=== PATIENT | male | born 1945 | race Caucasian/White ===

== ENCOUNTER 2020-11-23 10:02 | Inpatient (IN) | payer OTHER, MEDICARE ==
[~2020-11-23] VITALS: Ht 182.9 cm; Wt 80.6 kg
[~2020-11-23 10:02] MED LIST: ACET325 PO; ALBU90OI6 INH; Aspirin325 MG PO; GUAI600T33 PO; IBUP600 PO; LEVFLO500 PO; PRED20 PO; SYMBICORT 80-10.2 GM INH
[2020-11-23 10:29] LABS: BASOPHILS ABSOLUTE AUTO 0.04 K/mm3 (0.00-0.23); BASOPHILS PERCENT AUTO 0 % (0-2); EOSINOPHILS ABSOLUTE AUTO 0.06 K/mm3 (0.00-0.68); EOSINOPHILS PERCENT AUTO 1 % (0-6); Hematocrit 46.5 % (37.0-53.0); Hemoglobin 13.5 g/dL (13.5-17.5); IMMATURE GRAN ABSOLUTE AUTO 0.16 K/mm3 (0.00-0.10); IMMATURE GRAN PERCENT AUTO 1 % (0-1); LYMPHOCYTES ABSOLUTE AUTO 0.59 K/mm3 (0.84-5.20); LYMPHOCYTES PERCENT AUTO 5 % (21-46); MONOCYTES ABSOLUTE AUTO 1.02 K/mm3 (0.16-1.47); MONOCYTES PERCENT AUTO 8 % (4-13); Mean Corpuscular HGB 28.7 pg (26.0-34.0); Mean Corpuscular Volume 99 fL (80-100); Mean Platelet Volume 10.8 fL (9.1-12.4); NEUTROPHILS ABSOLUTE AUTO 11.08 K/mm3 (1.96-9.15); NEUTROPHILS PERCENT AUTO 86 % (41-73); Platelet Count 205 K/mm3 (150-400); RDW Coefficient Variation 12.5 % (11.7-14.2); RDW Standard Deviation 45.8 fL (35.1-46.3); White Blood Cell Count 12.95 K/mm3 (4.00-11.30)
[2020-11-23 10:41] LABS: Alanine Aminotransfer (ALT/SGP 20 U/L (12-78); Albumin, Blood 3.4 g/dL (3.4-5.0); Albumin/Globulin Ratio 0.8 (0.8-1.8); Alk Phos 105 U/L (50-136); Anion Gap 1 mmol/L (6-16); Aspartate Aminotrans (AST/SGOT 26 U/L (12-37); Bilirubin, Total 0.6 mg/dL (0.1-1.0); Blood Urea Nitrogen 14 mg/dL (8-24); CO2, Blood 42 mmol/L (21-32); Calcium, Blood 9.1 mg/dL (8.5-10.1); Chloride, Blood 96 mmol/L (98-108); Creatinine, Blood 0.74 mg/dL (0.60-1.20); Globulin, Blood 4.5 g/dL (2.2-4.0); Glomerular Filtration Rate >60 (60-); Glucose, Blood 128 mg/dL (70-99); Potassium, Blood 4.8 mmol/L (3.5-5.5); Sodium, Blood 139 mmol/L (136-145); Total Protein, Blood 7.9 g/dL (6.4-8.2); Troponin I <0.015 ng/mL (0.000-0.040)
[2020-11-23 10:46] LABS: PCO2 Arterial > 105 mmHg (35-45)
[2020-11-23] MEDS ORDERED: THERA-D2000 UNIT PO (11:12)
[2020-11-23] MEDS ORDERED: BENZ100A PO (11:12)
[2020-11-23 11:13] LABS: Influenza A, PCR NEGATIVE (NEGATIVE); Influenza B, PCR NEGATIVE (NEGATIVE); Resp Syncytial Virus, PCR NEGATIVE (NEGATIVE); SARS-Cov-2 (COVID-19) PCR, MMC NEGATIVE (NEGATIVE)
[2020-11-23] MEDS ORDERED: FAMO40 PO (11:13)
[2020-11-23] MEDS ORDERED: ARTIFICIAL TEAR15 M2 BOTHEYES (11:13)
[2020-11-23] MEDS ORDERED: FEROSUL325 M1 PO (11:14)
[2020-11-23] MEDS ORDERED: PANT40 PO (11:15)
[2020-11-23] MEDS ORDERED: FINA5 PO (11:15)
[2020-11-23] MEDS ORDERED: TIOT18 INH (11:16)
[2020-11-23] MEDS ORDERED: ROPI.25 PO (11:16)
[2020-11-23] MEDS ORDERED: TAMS.4ER PO (11:16)
[2020-11-23 13:53] LABS: Source, Urine Catheter
[2020-11-23 14:04] LABS: Bilirubin, Urine Neg (Neg); Blood, Urine Neg (Neg); Glucose Qualitative, Urine Neg (Neg); Ketones, Urine 1+ (Neg); Leukocyte Esterase, Urine Neg (Neg); Nitrite, Urine Neg (Neg); Protein, Urine 1+ (Neg); Urobilinogen, Urine NORM (Normal)
[2020-11-23 14:21] LABS: Appearance, Urine Clear (Clear); Color, Urine Yellow (P-Yellow)
[2020-11-23 14:40] LABS: PCO2 Arterial > 105 mmHg (35-45); PO2 Arterial 79.3 mmHg (80-100); pH Blood Arterial 7.18 (7.35-7.45)
[2020-11-23 18:22] LABS: Base Excess Venous 20.5 mmol/L; Bicarbonate Venous 40.4 mmol/L (24.0-30.0); PCO2 Venous 77.9 mmHg (38-42); PO2 Venous 84.3 mmHg (38-42); pH Blood Venous 7.38 (7.34-7.37)
--- NOTE | 2020-11-23 18:54 | NUR ---
PT ADMITTED TO ICU VIA ED AT 1250 FOR SOB. ON BIPAP 20/5 FI02 45%, SATS IN THE 90S. PT CONFUSED AND AGITATED, CO2 >105. LUNG SOUNDS VERY DIMINISHED BILATERALLY. PT HAS HX OF COPD AND USES 4-6L O2 AT BASELINE. PT W/C BOUND AT BASELINE. PT'S AT BEDSIDE, ABLE TO GIVE HX. PT IS DNR/DNI. HR REMAINS SINUS TACHY IN 130-140S, REPORTS NO HX OF HEART FAILURE. LASIX GIVEN IN ED, 3+ PITTING EDEMA BILATERAL LE. UPON ASSESSMENT, PT ABLE TO FOLLOW COMMANDS, NODS HEAD YES/NO. WEAKNESS T/O, BUT ABLE TO ASSIST WITH MOVEMENTS. ATTEMPTED TO REPOSITION ON L SIDE, PT DESATED TO 70S, BIPAP SETTINGS INCREASED TO 20/8 FIO2 100% TO RECOVER SATS, SETTINGS RETURNED TO 20/5 FIO2 45%. PT RESTING COMFORTABLY, NO APPARENT DISTRESS.
--- NOTE | 2020-11-23 19:55 | NUR ---
SHIFT ASSESSMENT ASSUMED CARE OF PT @ 1900, REPORT RECEIVED FROM HUSEYNI AGUIAR AND PATIENT NAVIGATOR, RASHIDA. PT ALERT AND ORIENTED, ABLE TO FOLLOW COMMANDS. LAYING IN BED, TOLERATING THE BIPAP. BIPAP 20/5-45% c O2 SATS >90%. WHILE TURNING PT HE QUICKLY DESATTED TO THE MID 70'S, FIO2 TITRATED UP TO 100%, O2 SATS SLOWLY CLIMBED BACK TO THE LOW 90'S. PT RESPONDED THE SAME TO PREVIOUS NURSE WITH A TURN. MARTINEZ CATH PATENT, DRAINING TO GRAVITY. SINUS TACH ON THE PRINTED CIRCUIT BOARDS STRIPPER ETCHER. WILL CONTINUE TO MONITOR CLOSELY.
[2020-11-24 03:30] LABS: BASOPHILS PERCENT AUTO 0 % (0-2); EOSINOPHILS PERCENT AUTO 0 % (0-6); Hematocrit 43.7 % (37.0-53.0); IMMATURE GRAN ABSOLUTE AUTO 0.06 K/mm3 (0.00-0.10); IMMATURE GRAN PERCENT AUTO 1 % (0-1); LYMPHOCYTES ABSOLUTE AUTO 0.24 K/mm3 (0.84-5.20); LYMPHOCYTES PERCENT AUTO 3 % (21-46); MONOCYTES ABSOLUTE AUTO 0.33 K/mm3 (0.16-1.47); MONOCYTES PERCENT AUTO 4 % (4-13); Mean Corpuscular HGB 29.1 pg (26.0-34.0); Mean Corpuscular HGB Conc 29.7 g/dL (31.5-36.5); Mean Corpuscular Volume 98 fL (80-100); Mean Platelet Volume 10.5 fL (9.1-12.4); NEUTROPHILS ABSOLUTE AUTO 8.39 K/mm3 (1.96-9.15); NEUTROPHILS PERCENT AUTO 93 % (41-73); Platelet Count 215 K/mm3 (150-400); RDW Coefficient Variation 12.5 % (11.7-14.2); RDW Standard Deviation 45.1 fL (35.1-46.3); Red Blood Cell Count 4.46 M/mm3 (4.30-5.90); White Blood Cell Count 9.02 K/mm3 (4.00-11.30)
[2020-11-24 03:32] LABS: Base Excess Venous 22.3 mmol/L; Bicarbonate Venous 42.3 mmol/L (24.0-30.0); PCO2 Venous 78.5 mmHg (38-42); PO2 Venous 79.5 mmHg (38-42); pH Blood Venous 7.39 (7.34-7.37)
[2020-11-24 03:47] LABS: Alanine Aminotransfer (ALT/SGP 20 U/L (12-78); Albumin, Blood 3.2 g/dL (3.4-5.0); Albumin/Globulin Ratio 0.8 (0.8-1.8); Alk Phos 98 U/L (50-136); Anion Gap 3 mmol/L (6-16); Aspartate Aminotrans (AST/SGOT 13 U/L (12-37); Bilirubin, Total 0.7 mg/dL (0.1-1.0); Blood Urea Nitrogen 27 mg/dL (8-24); Bun/Creatinine Ratio 31.2 (12.0-20.0); CO2, Blood 44 mmol/L (21-32); Calcium, Blood 8.9 mg/dL (8.5-10.1); Chloride, Blood 94 mmol/L (98-108); Creatinine, Blood 0.87 mg/dL (0.60-1.20); Globulin, Blood 4.2 g/dL (2.2-4.0); Glomerular Filtration Rate >60 (60-); Glucose, Blood 157 mg/dL (70-99); Magnesium, Blood 2.1 mg/dL (1.6-2.4); Potassium, Blood 5.1 mmol/L (3.5-5.5); Sodium, Blood 141 mmol/L (136-145); Total Protein, Blood 7.4 g/dL (6.4-8.2)
--- NOTE | 2020-11-24 04:36 | NUR ---
UPDATE WHILE THIS NURSE WAS IN OTHER PT ROOM, JOHNNY VOMITED INTO HIS BIPAP. BIPAP WAS REMOVED AND PT PLACED ON 6LPM O2 VIA NC. RT NOTIFIED AND BIPAP TUBING WAS CHANGED, BUT PT REMAINS OFF BIPAP DUE TO ASPIRATION RISK. DR HARO CALLED, ORDERS PLACED FOR NG TUBE. THIS AND ANOTHER NURSE ATTEMPTED TO PLACE NG BUT PT WILL NOT FOLLOW COMMANDS ENOUGH TO SWALLOW, CONTINUED TO FIGHT THE NG TUBE. PT REMAINS ON O2 VIA NC c O2 SATS >90%. AWAITING CALL BACK FROM HOSPITALIST FOR FURTHER INSTRUCTION. WILL CONTINUE TO MONITOR CLOSELY.
--- NOTE | 2020-11-24 06:12 | NUR ---
SHIFT SUMMARY PT REMAINS ALERT TO PERSON BUT VERY CONFUSED. UNSURE WHY HE IS HERE, DOES NOT RECALL ONCE HE IS UPDATED TO THE REASON FOR BEING HERE. CONTINUES TO BE NAUSEATED, MEDICATED WITH PRN ZOFRAN. PT CURRENTLY ON 3-5LPM O2 VIA NC c O2 SATS >89%. BP STABLE. CONTINUES TO BE TACHYCARDIC ON THE TOBACCO CHECKOUT CLERK. PULMONOLOGY CONSULT ORDERED FOR TODAY. WILL CONTINUE TO MONITOR.
--- NOTE | 2020-11-24 09:34 | NUR ---
PT APPEARS ANXIOUS AND RESTLESS THIS MORNING. IS VERY TWITCHY/TREMULOUS AND PICKING AT LINES/TUBES OFTEN. HE IS CONFUSED BUT ABLE TO BE REORIENTED. INCONSISTENT WITH FOLLOWING COMMANDS, ABLE TO OPEN EYES MINIMALLY AND SQUEEZE HANDS WEAKLY. HE WAS TAKEN OFF BIPAP ON ENGINE MAINTENANCE MECHANIC DUE TO VOMITING AND POSSIBLE ASPIRATION. CURRENTLY ON O2 6L NL, SATS IN 90S. ABDOMEN IS VERY DISTENDED, NG TUBE PLACED SUCCESSFULLY AND 650MLS OF DARK BROWN LIQUID IMMEDIATELY OUT. PT CALMED DOWN AFTER AND PLACED IN RESTRAINTS TO PROTECT NG TUBE. HR CONSISTENTLY IN 140S, OTHERWISE RESTING COMFORTABLY.
--- NOTE | 2020-11-24 16:15 | NUR ---
Initial palliative care consult: Leon is a 75 year old with a history of COPD O2 dependent at home 4-6l/min, GERD, BPH, RLS, PTSD. He was having increasing SOB, lethargy and confusion and he was brought into the hospital. He has been essentially chair and wheelchair bound since 2013. His Edwige is his caregiver. Edwige is present at the bedside. She reports that Leon's health has declined over the past 6 months. He mostly sits in his recliner or in his wheelchair. He becomes very SOB with any exertion. He has been unable to sleep in their bed and she just put a hospital bed (which she had from when her parents were still alive) into their living room but he didn't have a chance to use it yet as he was admitted to the hospital. dEwige reports she also has access to a alana lift if needed (also from when her parents were alive.) They have a ramp into their mobile home. Leon is dependent on Edwige for most of his ADLs which is very different from being mostly independent with his motorized wheelchair 6 months ago. Edwige reports she has no HH services, however she reports a large family and friend support system. Dr. Brooks requested this health underwriter give information to Edwige about hospice. Edwige reports that they live in [place] and she has some experience with hospice in the past with her parents who both at home with hospice services. She was happy with the support they received from hospice and felt that when the time was right that she would consider hospice for Leon. Answered questions and provided her the hospice brochure and the booklet considering comfort care. At this time Edwige states she is hopeful that Leon will recover and get back to his baseline. She admits that if he isn't able to recover to his baseline that she may need more assistance at home. She reports feeling well informed by Dr. Brooks and they will now wait and see how Leon does over the next couple days. Edwige states Leon looks better today than yesterday, however she is aware that he possibly aspirated this morning with his emesis. Edwige reports that Leon is a DNR/DNI. They have had conversations about this in the past and once he made that decision he has never wavered on it. She wants to respect his DNR/DNI wishes. She reports that he has paperwork filled out at the [facility] re: his DNR wishes. Contacted the [facility] medical records department and they have no paperwork on file re: POLST or AD. Will see if they are willing to complete another POLST in the coming days. Leon briefly woke during the visit. He answers simple yes no question but then quickly falls back to sleep. Emotional support provided to Leon and Edwige. PC to continue to follow for symptom management and advanced care planning. KPS score of 40% PPS score of 50%
--- NOTE | 2020-11-24 18:40 | NUR ---
SHIFT SUMMARY NG TUBE PLACED THIS AM AT 0730 AND GOT IMMEDIATE RETURN OF 650ML DARK, BROWN LIQUID. ABDOMINAL DISTENTION IMPROVED WELL BREATHING EFFORT. NG ON LIS AND DRAINING BILE LOOKING FLUID. BOWEL TONES NOW HYPOACTIVE X4. PT REMAINED ON NC T/O THE DAY AND IS AT 4L O2. MENTATION HAS INCREASINGLY IMPROVED T/O DAY, AND ABLE TO ORIENT TO SELF AND GIVE , RECOGNIZED , GAVE PLACE, YEAR, AND FOLLOWING COMMANDS. REMAINS TWITCHY/TREMULOUS, BUT LESS ANXIETY. ABLE TO ASSIST WITH REPOSITIONING. LASIX GIVEN AND MARTINEZ DRAINING TO GRAVITY CLEAR AND LIGHT YELLOW URINE. DIG GIVEN FOR HR. HR REMAINING IN 140S, EDEMA STILL 3+BILAT LE. PT CURRENTLY RESTING AND IN NO APPARENT DISTRESS.
--- NOTE | 2020-11-24 23:45 | NUR ---
PROVIDER DR COLLINS NOTIFIED OF PT'S CONTINUED SINUS TACHYCARDIA MAINTAINING 140'S DESPITE BEING ON CARDIZEM GTT 15 AND HAVING RECEIVED 0.25 IV DIGOXIN. BP SOFT, 90'S SBP, MAP >65. DISCUSSED PT'S NPO STATUS AND OVERALL "DRY" LOOKING STATE. ORDERS RECEIVED FOR LR GTT 125MLS/HR.
--- NOTE | 2020-11-25 05:33 | NUR ---
SHIFT SUMMARY PT ALERT BUT DROWSY ON SHIFT START. ON 5LNC, SPO2 >92%. IN ST 140'S, SOFT BP'S WITH SBP 90'S -100. CARDIZEM GTT STARTED PER DR DUGAN ORDER. NGT TO LIS, GREEN OUTPUT. MARTINEZ PATENT AND DRAINING. PT REMAINS NPO. LUNG SOUNDS PRESENT CLEAR/DIM. 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 HAD TO BE TITRATED UP TO 55% FIO2 TO KEEP SPO2 BETWEEN 89-92%. ORAL CARE Q4. CARDIZEM HAD BEEN TITRATED UP TO 15, LR @125MLS/HR STARTED (SEE PROVIDER NOTE), 2305 - HR FINALLY DROPPED FROM 140'S TO 100'S. BP STILL SOFT. PT'S CARDIZEM GTT EVENTUALLY TITRATED DOWN TO 5MG/HR, RHYTHM NOW PRESENTS AFLUTTER. END OF SHIFT - LR GTT PUT ON STANDBY AFTER READING PROVIDER NOTED REGARDING PULMONARY EDEMA. PT HAD INITALLY PRESENTED "DRY" AT BEGINNING OF SHIFT BUT MUCOSAS WET AND HR NOT TACHYCARDIC NOW. LUNG SOUNDS STILL CLEAR AT THIS TIME. NGT HAS OUTPUT OF 100. SOFT WRIST RESTRAINTS BILATERALLY HAVE REMAINED IN PLACE T/O SHIFT. PT STATES NOT BEING ABLE TO REMEMBER TO NOT PULL ON NGT AND STATED PREFERRING HAVING THEM ON UNTIL FEELING MORE "MENTALLY CLEAR" TO PREVENT THIS. IT WAS NOTED THAT WITH GIVING A BREAK TO RESTRAINTS, PT WENT TO GRAB NGT. OTHERWISE, PT HAS BEEN SLEEPING T/O MOST OF NIGHT. LETHARGY HAS IMPROVED SINCE PLACING BIPAP BACK ON. BED ALARM IN PLACE. WILL CONTINUE TO MONITOR UNTIL SHIFT CHANGE.
--- NOTE | 2020-11-25 10:43 | NUR ---
CARE ASSUMED ASSESSMENTS COMPLETED, PT WAKES EASILY AND IS ORIENTED TO SELF AND PLACE, COOPERATIVE WITH CARE, REMINDED OF SITUATION. PT ON 5L/NC, SPO2 90-92%, PT DENIES SOB AT REST, LS DIMINISHED BUT CLEAR. OCCASIONAL LOOSE COUGH, PT SWALLOWING SPUTUM. HR 100-120 AFLUTTER, CARDIZEM GTT AT 5MG/HR, BP STABLE. ABD MODERATELY DISTENDED, BT PRESENT, PT DENIES ABD PAIN. OGT TO LIWS, SMALL AMOUNT GREEN OUTPUT. MARTINEZ DRAINING CLEAR YELLOW URINE, EDEMA TO BLE'S. ORAL CARE COMPLETED, BEDBATH GIVEN, LE'S ELEVATED ON PILLOWS. PT BECAME SOB DURING BEDBATH, BIPAP PLACED AT 14/5, FIO2 55%, SPO2 95%, PT NOW SLEEPING. REFUSES TO REPOSITION ONTO SIDE, STATES HE CAN BREATHE BETTER WHILE SITTING UP IN BED.
--- NOTE | 2020-11-25 18:57 | NUR ---
END OF SHIFT PT ON BIPAP FOR APPROXIMATELY 2 HOURS THIS MORNING, HAS BEEN ON 6L/NC SINCE, SPO2 90-95%, PT DENIES SOB AT REST. BECOMES SOB WITH LITTLE EXERTION BUT IS ABLE TO RECOVER WITH COACHING. PT REMAINS PLEASANT AND COOEPRATIVE, SLEPT A LOT TODAY, STATES PT DOES THIS AT HOME AND THEN STAYS AWAKE LATE AT NIGHT. LS CLEAR, DIMINISHED, NO SPUTUM EXPECTORATED TODAY. NEBS AND SOLUMEDROL PER ORDERS. HR CURRENTLY 90'S AFLUTTER WITH PVC'S, BP STABLE. CARDIZEM GTT AT 5MG, ORAL DOSE GIVEN VIA OGT IN ATTEMPT TO TITRATE OFF OF IV GTT. PT DENIES CHEST PAIN/PRESSURE. ABD REMAINS DISTENDED BUT IS SOFT, PT DENIES ABD PAIN, NAUSEA, OR DISCOMFORT, NO EMESIS THIS SHIFT, OGT HAS BEEN CLAMPED SINCE EARLY AFTERNOON. MARTINEZ DRAINING ADEQUATE URINE VOLUMES, PT DIURESING WELL WITH LASIX. LE'S REMAIN EDEMATOUS, ARE ELEVATED. PT REFUSED MOST REPOSITIONING TODAY DESPITE ENCOURAGEMENT.
--- NOTE | 2020-11-25 22:24 | NUR ---
UPDATE PATIENT APPEARS TO BE TOLERATING NGT BEING CLAMPED WELL. PATIENT DENIES ANY NAUSEA OR DISCOMFORT AT THIS TIME. PATIENT DROWSY BUT AWAKENS EASILY TO VERBAL STIMULI AND TOUCH, PATIENT EASILY STAYS AWAKE WHILE STAFF IN ROOM BUT APPEARS TO QUICKLY FALL BACK TO SLEEP. PATIENT CURRENTLY APPEARS TO BE SLEEPING WELL AT THIS TIME, RESPIRATIONS EVEN AND UNLABORED. BIPAP IN PLACE. CALL LIGHT IN REACH.
[2020-11-26 03:33] LABS: BASOPHILS PERCENT AUTO 0 % (0-2); EOSINOPHILS PERCENT AUTO 0 % (0-6); Hematocrit 41.3 % (37.0-53.0); Hemoglobin 12.3 g/dL (13.5-17.5); IMMATURE GRAN ABSOLUTE AUTO 0.05 K/mm3 (0.00-0.10); IMMATURE GRAN PERCENT AUTO 0 % (0-1); LYMPHOCYTES ABSOLUTE AUTO 0.28 K/mm3 (0.84-5.20); LYMPHOCYTES PERCENT AUTO 2 % (21-46); MONOCYTES PERCENT AUTO 6 % (4-13); Mean Corpuscular HGB Conc 29.8 g/dL (31.5-36.5); Mean Corpuscular Volume 97 fL (80-100); NEUTROPHILS ABSOLUTE AUTO 11.59 K/mm3 (1.96-9.15); NEUTROPHILS PERCENT AUTO 91 % (41-73); Platelet Count 173 K/mm3 (150-400); RDW Coefficient Variation 12.6 % (11.7-14.2); Red Blood Cell Count 4.24 M/mm3 (4.30-5.90); White Blood Cell Count 12.72 K/mm3 (4.00-11.30)
[2020-11-26 03:53] LABS: Albumin, Blood 2.8 g/dL (3.4-5.0); Blood Urea Nitrogen 36 mg/dL (8-24); Bun/Creatinine Ratio 48.8 (12.0-20.0); Calcium, Blood 8.7 mg/dL (8.5-10.1); Chloride, Blood 94 mmol/L (98-108); Creatinine, Blood 0.74 mg/dL (0.60-1.20); Glomerular Filtration Rate >60 (60-); Glucose, Blood 140 mg/dL (70-99); Phosphorus, Blood 2.4 mg/dL (2.5-4.9); Potassium, Blood 3.8 mmol/L (3.5-5.5); Sodium, Blood 144 mmol/L (136-145)
[2020-11-26 04:04] LABS: Anion Gap Unable to Calculate mmol/L (6-16); CO2, Blood >45 mmol/L (21-32)
--- NOTE | 2020-11-26 04:59 | NUR ---
UPDATE DR HARO NOTIFIED OF PATIENT'S CARBON DIOXIDE RESULT THIS MORNING. ORDER RECIEVED FOR AN ABG.
[2020-11-26 05:24] LABS: PCO2 Arterial 75.7 mmHg (35-45); PO2 Arterial 69.3 mmHg (80-100); pH Blood Arterial 7.46 (7.35-7.45)
--- NOTE | 2020-11-26 06:06 | NUR ---
SHIFT SUMMARY PATIENT AWAKE MOST OF THE NIGHT LAST NIGHT. PATIENT APPEARED TO NAP ON AND OFF THROUGHOUT THE NIGHT. PATIENT REQUESTED SEVERAL BREAKS FROM THE BIPAP LAST NIGHT. ORAL CARE PROVIDED FREQUENTLY PER REQUEST. PATIENT DECLINED MOST TURNS LAST NIGHT STATING "I'M COMFORTABLE LIKE THIS," EVEN AFTER EDUCATION PROVIDED ON THE RISKS OF SKIN BREAK DOWN. NGT CLAMPED THROUGHOUT THE NIGHT AND APPEARED TO TOLERATE IT WELL. PATIENT DENIED ANY NAUSEA. PATIENT CURRENTLY RESTING IN BED WITH BIPAP IN PLACE. CALL LIGHT IN REACH, PATIENT HAS BEEN ABLE TO CALL APPROPRIATELY NEEDED. WILL CONTINUE CURRENT PLAN OF CARE AND REPORT TO ONCOMING RN.
--- NOTE | 2020-11-26 06:39 | NUR ---
DR DUGAN UPDATED DR DUGAN CALLED AND UPDATED ON PATIENT'S CRITICAL ABG CO2 RESULT THIS MORNING. NO ORDERS RECIEVED AT THIS TIME.
--- NOTE | 2020-11-26 11:38 | NUR ---
CARE ASSUMED ASSESSMENTS COMPLETED, PT ALERT, ORIENTED AND APPROPRIATE, REMAINS FORGETFUL AT TIMES. RESTRAINT REMOVED PER PT REQUEST, NO IMPULSIVITY OR PULLING AT LINES/TUBES NOTED. BIPAP 14/5, FIO2 45%, REMOVED FOR BREAK PER PT REQUEST, O2 6L/NC WITH SPO2 88-92%. LS CLEAR, DIMINISHED ON R, OCCASIONAL COUGH NOTED, MOSTLY AFTER GIVING ORAL SPONGES WITH WATER. PT DENIES SOB. HR AFLUTTER WITH PVC'S, RATE 100-115, PT DENIES PALPITATIONS OR CP, MAP'S >65. ABD MILDLY DISTENDED, PT DENIES NAUSEA OR ABD PAIN, BT ACTIVE. NGT REMAINS CLAMPED. EDEMA TO LE'S IMPROVING WITH LASIX, CLEAR YELLOW URINE FROM MARTINEZ. AM CARES COMPLETED, SPEECH EVAL DONE. IN TO ASSESS, NEW ORDERS. PLAN TO DC NGT IF PT TOLERATES LUNCH AND PO PILLS. CALLED TO BRING IN DENTURES AND HOME CPAP.
--- NOTE | 2020-11-26 13:08 | NUR ---
UPDATE PT ASSISTED WITH PUREE LUNCH, TOLERATED WELL, NO COUGHING DURING EATING, NO S/SX ASPIRATION. PT RESTED AFTER LUNCH WITH NC AT 6L. ONE HOUR AFTER MEAL COMPLETED, PT REASSESSED, DENIED ABD PAIN/NAUSEA, NO EMESIS. NGT DC'D, ORAL CARE COMPLETED, BIPAP RESUMED FOR NAP AT PREVIOUS SETTINGS 23/12, FIO2 45%. MARTINEZ DC'D PER ORDERS, URINAL PLACED AT BEDSIDE. PT PCU STATUS.
--- NOTE | 2020-11-26 17:10 | NUR ---
UPDATE PT VOIDED USING URINAL AT BEDSIDE, HR INCREASED TO 150, SPO2 DECREASED TO 78% ON 6L/NC. PT ASSISTED BACK TO BED, HR DECREASED TO 120, SPO2 UP TO 90% WITHIN 3 MINUTES OF RESTING AND DEEP BREATHING. REMAINS ON NC. AT BEDSIDE.
--- NOTE | 2020-11-26 18:14 | NUR ---
END OF SHIFT PT PLACED BACK ON BIPAP 14/5, FIO2 45% IN PREPARATION FOR BEDBATH. TOLERATES NC WELL WHILE RESTING, DESATS WTIH MINIMAL EXERTION. LS CLEAR THIS EVENING, HR 90'S A FLUTTER AT THIS TIME, INCREASES WITH ACTIVITY. BP STABLE TODAY. PT PLEASANT AND COOPERATIVE THIS SHIFT, TOLERATED PUREE MEALS AND PO PILLS WITHOUT S/SX ASPIRATION. PHOS LEVEL DISCUSSED WITH DR. DUGAN, NO NEW ORDERS. CXR IN AM.
--- NOTE | 2020-11-26 20:00 | NUR ---
ASSUMED CARE OF PT AT 1915. REPORT RECEIVED. PT PRESENTS IN BED. ALERT AND ORIENTED. PLEASANT AND COOPERATIVE WITH CARE AND ASSESSMENT. PRESENTLY ON BIPAP WHEREAS HE IS ABLE TO MAINTAIN > 90 PERCENT SATURATIONS. WILL GIVE PT BREAK TO CANNULA FOR ORAL CARE AND EVENING MEDS. WILL RETURN PT TO BIPAP FOR NIGHT SLEEP. PT IN NO APPARENT DISTRESS. HAVE DONE TEACHING ON SAFE SWALLOW WITH CHIN TUCK. PT RE-DEMONSTRATES TECHNIQUE. VERBALIZES THAT HE HAS BETTER SWALLOW CONTROL. WILL REVIEW CHART AND PLAN OF CARE FOR THIS PT.
--- NOTE | 2020-11-27 00:58 | NUR ---
PT CURRENTLY ON BIPAP. MASK CHANGED OUT TO FULL FACE BY RESPIRATORY THERAPY. PT TOLERATES THIS MASK BETTER. MAINTAINS > 90 PERCENT SATURATION.
[2020-11-27 03:36] LABS: BASOPHILS ABSOLUTE AUTO 0.01 K/mm3 (0.00-0.23); BASOPHILS PERCENT AUTO 0 % (0-2); EOSINOPHILS ABSOLUTE AUTO 0.02 K/mm3 (0.00-0.68); EOSINOPHILS PERCENT AUTO 0 % (0-6); Hematocrit 42.7 % (37.0-53.0); Hemoglobin 12.8 g/dL (13.5-17.5); IMMATURE GRAN ABSOLUTE AUTO 0.04 K/mm3 (0.00-0.10); IMMATURE GRAN PERCENT AUTO 0 % (0-1); LYMPHOCYTES PERCENT AUTO 7 % (21-46); MONOCYTES ABSOLUTE AUTO 0.94 K/mm3 (0.16-1.47); MONOCYTES PERCENT AUTO 10 % (4-13); Mean Corpuscular HGB 28.8 pg (26.0-34.0); Mean Corpuscular Volume 96 fL (80-100); Mean Platelet Volume 10.9 fL (9.1-12.4); NEUTROPHILS ABSOLUTE AUTO 7.96 K/mm3 (1.96-9.15); NEUTROPHILS PERCENT AUTO 82 % (41-73); Platelet Count 167 K/mm3 (150-400); RDW Coefficient Variation 12.5 % (11.7-14.2); RDW Standard Deviation 44.8 fL (35.1-46.3); Red Blood Cell Count 4.44 M/mm3 (4.30-5.90); White Blood Cell Count 9.67 K/mm3 (4.00-11.30)
[2020-11-27 03:51] LABS: Albumin, Blood 2.7 g/dL (3.4-5.0); Blood Urea Nitrogen 29 mg/dL (8-24); Bun/Creatinine Ratio 37.1 (12.0-20.0); Calcium, Blood 8.5 mg/dL (8.5-10.1); Chloride, Blood 93 mmol/L (98-108); Creatinine, Blood 0.78 mg/dL (0.60-1.20); Glomerular Filtration Rate >60 (60-); Glucose, Blood 111 mg/dL (70-99); Phosphorus, Blood 2.8 mg/dL (2.5-4.9); Potassium, Blood 3.6 mmol/L (3.5-5.5); Sodium, Blood 142 mmol/L (136-145)
[2020-11-27 04:04] LABS: Anion Gap Unable to Calculate mmol/L (6-16); CO2, Blood >45 mmol/L (21-32)
--- NOTE | 2020-11-27 05:10 | NUR ---
PT IS ABLE TO STAND UP OUT OF BED. DID DO ORTHOSTATIC BLOOD PRESSURES WITH TRANSFER. SEE VITAL SIGN FLOWSHEET FOR DETAILS. PT ABLE TO PIVOT TRANSFER TO BEDSIDE COMMODE. HAS SMALL BM. DOES BECOME TACHYPNEIC AND IS ABLE TO RECOVER ONCE BACK IN BED. VOIDS Q.S. THIS NIGHT. HAVE WORKED ON SAFE SWALLOW TECHNIQUES. HAS WORN BIPAP MASK OFF AND ON THROUGH THE NIGHT. DOES HAVE PROBLEMS TOLERATING MASK. WILL CONTINUE TO MONITOR PT, AND WILL REPORT OFF TO ONCOMING RN.
[2020-11-27 05:19] LABS: PCO2 Arterial 67.5 mmHg (35-45); PO2 Arterial 66.3 mmHg (80-100); pH Blood Arterial 7.49 (7.35-7.45)
--- NOTE | 2020-11-27 10:46 | NUR ---
CARE ASSUMED ASSESSMENTS COMPLETED, PT SITTING UP IN BED WITH 6L 02/NC, SPO2 90-92%, PT DENIES SOB. LS DIM WITH A FINE EXP WHEEZE IN RUL, PT RECEIVING NEB TX. OCCASIONAL LOOSE COUGH NOTED. HR 90-110 AFLUTTER WITH PVC'S, BP STABLE, PT DENIES SOB. PREIPHERAL EDEMA IMPROVING, LE'S ELEVATED. PT ATE BREAKFAST AFTER NEB TREATMENT COMPLETED, TOLERATED PUREE DIET AND PO MEDS WITHOUT DIFFUCULTY. PT VOIDS IN URINAL IN BED, IS NOW LYING DOWN RESTING WITH EYES CLOSED.
--- NOTE | 2020-11-27 13:54 | NUR ---
will complete polst with and discuss follow up care and home support.
--- NOTE | 2020-11-27 19:01 | NUR ---
END OF SHIFT PT MEDICAL STATUS, HAD A GOOD DAY, REMAINS ALERT AND ORIENTED X4. WAS ON 6L/NC T/O SHIFT WITH SPO2 MID 90'S AT REST, 88-91% WITH ACTIVITY. LS CLEAR, DIM ON R, LOOSE COUGH PRESENT. HR REMAINS AFLUTTER WITH PVC'S, RATE 80'S-110, PT DENIES CP. APPETITE POOR, TOLERATING PUREE DIET WITHOUT S/SX ASPIRATION. PT GOT UP TO CHAIR FOR ABOUT 2 HOURS THIS EVENING, TRANSFERRED WITH 1 PERSON ASST AND WALKER, GAIT STEADY. PT BECAME SOB WITH TRANSFER BUT RECOVERED QUICKLY WITH REST AND DEEP BREATHING. BATH GIVEN IN CHAIR THIS EVENING, LINENS CHANGED. PT VOIDING WITHOUT DIFFICULTY, NO BM THIS SHIFT. NO N/V OR ABD TENDERNESS.
--- NOTE | 2020-11-27 20:32 | NUR ---
PATIENT AWAKENS TO SLIGHT STIMULI. VERBALIZED FEELING BETTER A&O X3. ON 6L/NC PATIENT VERBALIZED HE WEARS 6L/NC AT HOME ALSO. BIOX 90-93% SOB WITH ACTIVITY. WALKER THICKEN LIQUID WITHOUT DIFFICULTY. WORKFORCE MANAGEMENT MANAGER SHOWING A FLUTTER WITH FREQUENT PVC.
--- NOTE | 2020-11-27 22:57 | NUR ---
PATIENT AWAKE, VERBALIZED HE IS NOT TIRED ENOUGH FOR BIPAP AT THIS TIME. PATIENT VERBALIZED THAT HE HAS A DIFFICULT TIME WEARING THE BIPAP.
--- NOTE | 2020-11-27 23:19 | NUR ---
PATIENT PLACED ON BIPAP BY RT, / BUR 12 WITH 6L BLEED IN
--- NOTE | 2020-11-28 00:04 | NUR ---
PATIENT REMOVED BIPAP AND OXYGEN 6L/NC REPLACED. PATIENT VERBALIZED THAT HE JUST CAN'T WEAR IT.
[2020-11-28 03:57] LABS: Albumin, Blood 2.5 g/dL (3.4-5.0); Anion Gap 2 mmol/L (6-16); Blood Urea Nitrogen 20 mg/dL (8-24); Bun/Creatinine Ratio 27.2 (12.0-20.0); CO2, Blood 43 mmol/L (21-32); Chloride, Blood 93 mmol/L (98-108); Creatinine, Blood 0.74 mg/dL (0.60-1.20); Glomerular Filtration Rate >60 (60-); Glucose, Blood 109 mg/dL (70-99); Phosphorus, Blood 3.6 mg/dL (2.5-4.9); Potassium, Blood 3.3 mmol/L (3.5-5.5); Sodium, Blood 138 mmol/L (136-145)
--- NOTE | 2020-11-28 04:44 | NUR ---
AT O400 PATIENT AWAKE AND C/O SLIGHT NAUSEA, ZOFRAN IV GIVEN. PATIENT NOW SLEEPING WITH 6L/NC. PATIENT CONTINUES TO REFUSE BIPAP
--- NOTE | 2020-11-28 06:07 | NUR ---
SUMMARY PATIENT SLEEPING OFF AND ON T/O THE NIGHT WITH 6L/NC IN PLACE. REF BIPAP STATING THAT HE HAS DIFFICULTY WITH THE HIGH PRESSURE, PATIENT CONTINUES TO REFUSE BIPAP WITH IT BEING ADJUSTED BY RT. PATIENT USING URINAL T/O NIGHT WITHOUT DIFFICULTY. PATIENT WALKER THICKENED LIQUIDS WITHOUT DIFFICULTY, REQUEST PLACED BY DAY SHIFT FOR REPEAT SWALLOW EVAL THIS MORNING. PATIENT C/O NAUSEA ONCE DURING THE NIGHT RELIEF WITH ZOFRAN IV.
--- NOTE | 2020-11-28 07:40 | NUR ---
ASSUMED CARE: PT RESTING QUIETLY ON 6L AT THIS TIME. AFLUTTER IN 1TEENS ON TELE. NO ACUTE NEEDS AT THIS TIME.
--- NOTE | 2020-11-28 17:28 | NUR ---
Spiritual care note: I met with Mr. Coppola and his marc this afternoon. Both report hope for continued recovery. They appear devoted and loving. I offered prayer and continued encouragement.
--- NOTE | 2020-11-28 18:21 | NUR ---
SHIFT SUMMARY: PT REMAINED IN AFLUTTER WITH NC AT 6L PER HOME BASELINE. UP IN CHAIR AT THIS TIME. SBA. CAME TO VISIT TODAY. MEDICAL STATUS WITHOUT TELE BUT PT AND REQUESTED TELE TO STAY ON UNTIL PT LEAVES ICU. NO OTHER NEEDS OR CONCERNS AT THIS TIME.
--- NOTE | 2020-11-28 22:11 | NUR ---
ASSUMPTION OF CARE: PATIENT UP IN CHAIR UPON INITAL ASSESSMENT. PATIENT GOT BACK TO BED X1 STANDBY ASSIST AND DENIES PAIN. PATINET COMPLETELY A/O AND IS IN GOOD SPIRITS. REMAINS IN A-FLUTTER, BP REMAINS STABLE, AND CONTINUES ON 6L HE WEARS AT HOME. IVS SL AND URINAL REPLACED AT BEDSIDE. WILL CONTINUE TO MONITOR
--- NOTE | 2020-11-29 06:23 | NUR ---
END OF SHIFT SUMMARY: CHRISTY REMAINS A/O X3, ON 6L, AND HAS SLEPT A GOOD PORTION OF THE NIGHT. PATIENT UP WITH STANDY ASSIST TO BATHROOM/CHAIR EARLY THIS MORNING WITH NO ISSUES. NO LABS ORDERED FOR CHRISTY THIS MORNING
--- NOTE | 2020-11-29 10:35 | NUR ---
SHANKAR STARTED THIS SHIFT WITH THE BIPAP ON, WHEN CHECKING ON HIM, BREATHING WELL AND TOLERATING THE BIPAP WITHOUT INCIDENT. AROUND 0830 HE CAME OFF THE BIPAP AND WAS PLACED BACK ON HIS 8L/NC AND WANTED TO TRY TO EAT SOME BREAKFAST. HE DENIES ANY COMPLAINTS AT THIS TIME. HE WAS NOTED TO HAVE WARM RIGHT LOWER EXTREMITY AND COOL LEFT LOWER EXTREMITY. HE STATED THAT THEY DIDN'T FEEL ANY DIFFERENT TO HIM. HE IS CONCERNED THAT THE FOOD TRAYS, "COME TO FAST" HE USUALLY ONLY EATS ONE MEAL A DAY. SO IN FILLING OUT HIS MENU WE OPTED FOR HALF PORTIONS. WILL CONTINUE TO TREAT NEEDED.
--- NOTE | 2020-11-29 12:02 | NUR ---
SHANKAR FINISHED WORKING WITH PHYSICAL THERAPY, HE WAS TRANSFERRED TO THE WHEELCHAIR AT THE END OF THE WORKOUT SO THAT WE COULD TRANSFER HIM TO ROOM 328 HE WAS PRETTY SHORT OF BREATH ON THE COMPLETION OF THE WORKOUT AND WE WAITED FOR HIM TO CATCH HIS BREATH BEFORE TRANSFERRING HIM OUT. WE ENCOURAGED HIM THAT IF NECESSARY TO GO BACK ON HIS BIPAP OR CPAP UNTIL HE RESTS. REPORT WAS CALLED TO [facility] BILL.
--- NOTE | 2020-11-29 12:20 | NUR ---
Assumed Care Received report from [facility]-RN. Patient arrived via w/c and on 7L O2. Home CPAP and personal belongings arrived with patient. Transferred with 1p assist from w/c to bed. Humidifier attached. Patient settled to room and eating lunch. Bed in lowest position, call light near, bed controls in reach. [facility].
[2020-11-29] MEDS ORDERED: DILT180 PO ×2 (14:58→15:05)
[2020-11-29] MEDS ORDERED: FURO40 PO (15:06)
[2020-11-29] MEDS ORDERED: XARELTO20 MG PO (15:06)
--- NOTE | 2020-11-29 17:11 | NUR ---
Discharge Summary A/Ox3, pleasant and cooperative with care. 1p min assist, independent with urinal. Denies pain. Currently on 6-7 L O2, sats holding above 90%. Discharging to home. Reviewed discharge paperwork with and patient at the bedside. No questions at this time. IV's removed, WNL. Copy of d/c paperwork provided. Meds faxed to [facility]. brought in portable O2 tank for transport home. Personal belongings sent home. Escorted by W[employer]IR[employer] B[employer]ER via w/c.
== END 2020-11-29 17:11 | disposition home or self-care (01) | DRG 291 ==
LOC: ER 10:02 → ICUE 11:30 → ICUW 11:30 → ICUE 12:45 → MEDS 11-29 12:30
PROVIDERS: Emergency Medicine; Family Medicine; Internal Medicine Critical Care Medicine; Nurse Practitioner Acute Care; ADMIT Internal Medicine
PROC: 5A09457 Assistance with Respiratory Ventilation, 24-96 Consecutive Hours, Continuous Positive Airway Pressure (ICD-10-PCS; principal; 2020-11-23)
DX: I50.41 Acute combined systolic (congestive) and diastolic (congestive) heart failure (principal); J96.22 Acute and chronic respiratory failure with hypercapnia; J69.0 Pneumonitis due to inhalation of food and vomit; R65.11 Systemic inflammatory response syndrome (SIRS) of non-infectious origin with acute organ dysfunction; J96.21 Acute and chronic respiratory failure with hypoxia; J44.1 Chronic obstructive pulmonary disease with (acute) exacerbation; I48.92 Unspecified atrial flutter; N40.0 Benign prostatic hyperplasia without lower urinary tract symptoms; K21.9 Gastro-esophageal reflux disease without esophagitis; Z99.81 Dependence on supplemental oxygen; G25.81 Restless legs syndrome; Z90.49 Acquired absence of other specified parts of digestive tract; Z98.890 Other specified postprocedural states; Z87.891 Personal history of nicotine dependence; Z66 Do not resuscitate; Z88.8 Allergy status to other drugs, medicaments and biological substances; Z79.899 Other long term (current) drug therapy; Z20.822 Contact with and (suspected) exposure to COVID-19; F32.9 Major depressive disorder, single episode, unspecified; I35.0 Nonrheumatic aortic (valve) stenosis
CPT/HCPCS: 0241U; 36415; 36600; 71045; 74018; 80053; 80069; 82803; 83735; 83880; 84145; 84484; 85025; 92526; 92610; 93005; 93010; 93306; 94640; 94644; 94660; 96365; 96375; 97110; 97162; 97530; 99285-25; A9270; C9113; J0456; J1160; J1650; J1940; J2405; J2920; J2930; J3475; J7050; J7120

== ENCOUNTER 2021-04-14 08:09 | Inpatient (IN) | payer OTHER ==
[~2021-04-14] VITALS: Ht 177.8 cm; Wt 83.9 kg
[~2021-04-14 08:09] MED LIST changes: +ARTIFICIAL TEAR15 M2 BOTHEYES; +BENZ100A PO; +DILT180 PO; +FAMO40 PO; +FEROSUL325 M1 PO; +FINA5 PO; +FURO40 PO; +PANT40 PO; +ROPI.25 PO; +SYMBICORT 16010.2 GM INH; -SYMBICORT 80-10.2 GM INH; +TAMS.4ER PO; +THERA-D2000 UNIT PO; +TIOT18 INH; +XARELTO20 MG PO
[2021-04-14 08:28] LABS: Base Excess Venous 22.7 mmol/L; Bicarbonate Venous 38.6 mmol/L (24.0-30.0); PCO2 Venous > 105 mmHg (38-42); pH Blood Venous 7.14 (7.34-7.37)
[2021-04-14 08:38] LABS: BASOPHILS ABSOLUTE AUTO 0.03 K/mm3 (0.00-0.23); BASOPHILS PERCENT AUTO 0 % (0-2); EOSINOPHILS ABSOLUTE AUTO 0.01 K/mm3 (0.00-0.68); EOSINOPHILS PERCENT AUTO 0 % (0-6); Hematocrit 49.2 % (37.0-53.0); IMMATURE GRAN PERCENT AUTO 1 % (0-1); LYMPHOCYTES ABSOLUTE AUTO 0.56 K/mm3 (0.84-5.20); LYMPHOCYTES PERCENT AUTO 4 % (21-46); MONOCYTES ABSOLUTE AUTO 1.73 K/mm3 (0.16-1.47); MONOCYTES PERCENT AUTO 12 % (4-13); Mean Corpuscular HGB 27.9 pg (26.0-34.0); Mean Corpuscular HGB Conc 28.5 g/dL (31.5-36.5); Mean Corpuscular Volume 98 fL (80-100); NEUTROPHILS ABSOLUTE AUTO 11.73 K/mm3 (1.96-9.15); NEUTROPHILS PERCENT AUTO 83 % (41-73); Platelet Count 235 K/mm3 (150-400); RDW Coefficient Variation 12.1 % (11.7-14.2); RDW Standard Deviation 44.1 fL (35.1-46.3); Red Blood Cell Count 5.02 M/mm3 (4.30-5.90); White Blood Cell Count 14.16 K/mm3 (4.00-11.30)
[2021-04-14 09:04] LABS: Alanine Aminotransfer (ALT/SGP 24 U/L (12-78); Albumin, Blood 3.5 g/dL (3.4-5.0); Albumin/Globulin Ratio 0.7 (0.8-1.8); Alk Phos 139 U/L (50-136); Aspartate Aminotrans (AST/SGOT 20 U/L (12-37); Bilirubin, Total 0.6 mg/dL (0.1-1.0); Blood Urea Nitrogen 21 mg/dL (8-24); Bun/Creatinine Ratio 16.4 (12.0-20.0); Calcium, Blood 9.6 mg/dL (8.5-10.1); Chloride, Blood 87 mmol/L (98-108); Creatinine, Blood 1.28 mg/dL (0.60-1.20); Globulin, Blood 5.1 g/dL (2.2-4.0); Glomerular Filtration Rate 55 (60-); Glucose, Blood 183 mg/dL (70-99); Potassium, Blood 5.1 mmol/L (3.5-5.5); Sodium, Blood 136 mmol/L (136-145); Total Protein, Blood 8.6 g/dL (6.4-8.2); Troponin I 0.038 ng/mL (0.000-0.040)
[2021-04-14 09:23] LABS: Anion Gap Unable to Calculate mmol/L (6-16); CO2, Blood >45 mmol/L (21-32)
[2021-04-14 09:48] LABS: SARS-Cov-2 (COVID-19) PCR, MMC NEGATIVE (NEGATIVE)
[2021-04-14 13:28] LABS: Base Excess Venous 22.6 mmol/L; Bicarbonate Venous 40.9 mmol/L (24.0-30.0); pH Blood Venous 7.24 (7.34-7.37)
[2021-04-14 13:29] LABS: PCO2 Venous > 105 mmHg (38-42)
--- NOTE | 2021-04-14 19:54 | NUR ---
Extensive conversation this morning with about his pronosis. She is understanding and want to speak with her children. After a long day in the ER her and the children are at bedside and agree to comfort measures only. advised physician and orders placed. Advised charge nurse in ER of need to medicate and wait to take off bibab. pt twitching and breathing hard risk for severe air hunger or seizure. pt appears less than 24 hours with assessment of labs and physical exam.
[2021-04-15] MEDS ORDERED: POTA10T PO (01:22)
[2021-04-15] MEDS ORDERED: ALBU90OI INH (01:24)
[2021-04-15] MEDS ORDERED: SPIRIVA RESPIMAT4 G3 INH (01:24)
[2021-04-15] MEDS ORDERED: ALBU2.5V5 INH (01:25)
[2021-04-15] MEDS ORDERED: FAMO40 PO (01:27)
[2021-04-15] MEDS ORDERED: FINA5 PO (01:28)
--- NOTE | 2021-04-15 07:17 | NUR ---
SHIFT SUMMARY PATIENT ARRIVED TO ROOM 312 VIA STRETCHER. HE WAS NONRESPONSIVE AND PLACED ON BIPAP BY RT. PATIENT AT 0654 WITH FAMILY PRESENT.
--- NOTE | 2021-04-15 09:03 | NUR ---
PT PASSED PRIOR TO TAKING OVER CARE. DR HARO NOTIFIED OF TIME OF . FAMILY WAS TO CALL WITH CHOICE OF HOMES. ALL PERSONAL BELONINGS COLLECTED BY FAMILY.
--- NOTE | 2021-04-15 16:13 | NUR ---
PT WAS PICKED UP BY [facility] AND FAMILY ALREADY TOOK PERSONAL BELONGINGS.
== END 2021-04-15 06:54 | DRG 871 ==
LOC: ER 08:09 → ERHOLD 12:55 → MEDS 23:05
PROVIDERS: Emergency Medicine; Nurse Practitioner Acute Care; ADMIT Family Medicine
PROC: 5A09357 Assistance with Respiratory Ventilation, Less than 24 Consecutive Hours, Continuous Positive Airway Pressure (ICD-10-PCS; principal; 2021-04-14)
DX: A41.9 Sepsis, unspecified organism (principal); J69.0 Pneumonitis due to inhalation of food and vomit; J18.9 Pneumonia, unspecified organism; G92 Toxic encephalopathy; J96.01 Acute respiratory failure with hypoxia; J96.02 Acute respiratory failure with hypercapnia; I50.43 Acute on chronic combined systolic (congestive) and diastolic (congestive) heart failure; N17.9 Acute kidney failure, unspecified; J44.1 Chronic obstructive pulmonary disease with (acute) exacerbation; I48.92 Unspecified atrial flutter; E87.2 Acidosis; J44.0 Chronic obstructive pulmonary disease with (acute) lower respiratory infection; R65.20 Severe sepsis without septic shock; Z20.822 Contact with and (suspected) exposure to COVID-19; Z51.5 Encounter for palliative care; Z66 Do not resuscitate; G47.33 Obstructive sleep apnea (adult) (pediatric); F32.9 Major depressive disorder, single episode, unspecified; K21.9 Gastro-esophageal reflux disease without esophagitis; G25.81 Restless legs syndrome; E66.9 Obesity, unspecified; I48.0 Paroxysmal atrial fibrillation; N40.0 Benign prostatic hyperplasia without lower urinary tract symptoms; Z87.891 Personal history of nicotine dependence; Z68.26 Body mass index [BMI] 26.0-26.9, adult; Z91.19 Patient's noncompliance with other medical treatment and regimen; Z99.81 Dependence on supplemental oxygen; Z98.890 Other specified postprocedural states; Z79.51 Long term (current) use of inhaled steroids; Z79.899 Other long term (current) drug therapy
CPT/HCPCS: 36415; 51702; 51798; 71045; 80053; 82803; 83605; 83880; 84145; 84484; 85025; 87040; 93005; 93010; 94660; 96361-59; 96365-59; 96367-59; 99285-25; J0456; J0696; J2060; J2270; J2930; J7030; J7050; U0004